=== PATIENT | male | born 1980 | race Caucasian/White ===

== ENCOUNTER 2019-10-30 09:28 | Emergency (ER) | payer SELFPAY ==
[~2019-10-30] VITALS: Ht 182.9 cm; Wt 105.0 kg
[2019-10-30 09:30] VITALS: BP 127/88
[2019-10-30] MEDS ORDERED: ACETAMINOPHEN 325MG TABLET PO ONE (10:00)
[2019-10-30] MEDS ORDERED: IBUPROFEN 800MG TABLET PO ONE (10:00)
[2019-10-30] MEDS ORDERED: METOCLOPRAMIDE HCL 10MG TABLET PO ONE (10:00)
== END 2019-10-30 11:52 | disposition left against medical advice (07) ==
LOC: ER 09:31
DX: R51 Headache (principal)
CPT/HCPCS: 99284; J8597